=== PATIENT | male | born 1975 | race American Indian/Alaskan Native ===

== ENCOUNTER 2018-02-01 15:16 | Inpatient (IN) | payer BC ==
[2018-02-01 15:42] VITALS: BMI 28.6
[2018-02-01] MEDS: Sodium Chloride 0.9% 1,000 ML IV SCH ×2 (15:45→20:06)
--- NOTE | 2018-02-01 15:45 | ED PDOC ---
Arrival/HPI - General Chief Complaint: Male Genitourinary Time Seen by Provider: 02/01/18 15:19 Historian: Patient - History of Present Illness Narrative History of Present Illness (Text): 02/01/18 15:41 42 y/o male, pmh including htn/prostactomy (11/2016), nkda, c/o lt. testicular pain and swelling started yesterday. Pt. stated that he has erectile dysfunction since 11/2016 surgery, not been having any sexual intercourse for the past 1 year, no urinary symptoms, stated that he noted to have left testicular pain lastn night, feeling warmth this morning, eating and drinking well, no nausea or vomiting, no chills, no abdominal or pelvic pain, no palpitation, no rash, no other medical or psychological complaints. Past Medical History - Provider Review Nursing Documentation Reviewed: Yes - Infectious Disease Hx of Infectious Diseases: None - Cardiac Hx Hypertension: Yes - Pulmonary Hx Asthma: Yes - Hematological/Oncological Hx Cancer: Yes (prostate) - Genitourinary/Gynecological Other/Comment: epididymitis - Psychiatric Hx Substance Use: No - Surgical History Other/Comment: lymph nodes. prostate - Anesthesia Hx Anesthesia: Yes Hx Anesthesia Reactions: No Hx Malignant Hyperthermia: No Family/Social History - Physician Review Nursing Documentation Reviewed: Yes Family/Social History: Unknown Family HX Smoking Status: Never Smoked Hx Alcohol Use: Yes Frequency of alcohol use: Socially Hx Substance Use: No Allergies/Home Meds Allergies/Adverse Reactions: Allergies coconut Adverse Reaction (Verified 02/01/18 15:21) ANAPHYLAXIS Home Medications: Home Meds Medication Instructions Recorded Confirmed Valsartan [Valsartan] 1 tab PO DAILY 02/01/18 02/01/18 amLODIPine [Norvasc] 1 tab PO DAILY 02/01/18 02/01/18 Review of Systems - Review of Systems Constitutional: Fevers. absent: Fatigue Eyes: absent: Vision Changes ENT: absent: Hearing Changes Respiratory: absent: SOB, Cough Cardiovascular: absent: Chest Pain Gastrointestinal: absent: Abdominal Pain, Diarrhea, Nausea, Vomiting Genitourinary Male: Other (+testicular pain). absent: Dysuria, Frequency Musculoskeletal: absent: Arthralgias, Back Pain Skin: absent: Rash, Pruritis Neurological: absent: Headache, Dizziness Psychiatric: absent: Anxiety, Depression Physical Exam Vital Signs Reviewed: Yes Vital Signs Temp Pulse Resp BP Pulse Ox 02/01/18 17:33 103 H 18 99 02/01/18 17:13 98 H 18 121/71 99 02/01/18 15:26 99.8 F H 110 H 18 125/74 99 Temperature: Febrile Blood Pressure: Normal Pulse: Tachycardic Respiratory Rate: Normal Appearance: Positive for: Well-Appearing, Non-Toxic, Comfortable Pain Distress: None Mental Status: Positive for: Alert and Oriented X 3 - Systems Exam Head: Present: Atraumatic, Normocephalic Pupils: Present: PERRL Extroacular Muscles: Present: EOMI Conjunctiva: Present: Normal Mouth: Present: Moist Mucous Membranes Neck: Present: Normal Range of Motion Respiratory/Chest: Present: Clear to Auscultation, Good Air Exchange. No: Respiratory Distress, Accessory Muscle Use Cardiovascular: Present: Regular Rate and Rhythm, Normal S1, S2. No: Murmurs Abdomen: Present: Normal Bowel Sounds. No: Tenderness, Distention, Peritoneal Signs Genitourinary Male: Present: Normal External Genitalia, Circumcised Penis, Testicle Tenderness (left), Testicle Swelling (left), Other (there is no necrotic skin and no cielo skin/abscess). No: Lesions, Penile Discharge, Penile Swelling, Masses, Erythema, Hernias Back: Present: Normal Inspection Upper Extremity: Present: Normal Inspection. No: Cyanosis, Edema Lower Extremity: Present: Normal Inspection. No: Edema Neurological: Present: GCS=15, CN II-XII Intact, Speech Normal Skin: Present: Warm, Dry, Normal Color. No: Rashes Psychiatric: Present: Alert, Oriented x 3, Normal Insight, Normal Concentration Medical Decision Making ED Course and Treatment: 02/01/18 15:46 -labs/ua/chlamydia and gonorrhea -Testicular sonogram -IVF/tylenol -Observe and reassess 02/01/18 17:42 -Scrotum sonogram: Left epididymitis and orchitis. Complex, septated left hydrocele measures 1.9 x 4.8 cm. Unilateral, left varicocele. -Labs are non-significant except wbc 18 -UA show +UTI -Rocephine 250mg IM and azithromycin 1gm po ordered, Levaquin 500mg po ordered. -Pt. will need admission. 02/01/18 17:49 -I spoke to Dr. J Carlos Wray as he covers Dr. Cher Wray, discussed about the case/ labs/radiology study, request Dr. Wyatt and Dr. Degroot on the routine consult , agreed to admit to his service. -I discussed with Dr. Campbell about the case/labs/radiology study, he agreed on the treatment/admission/agreed he will put in the admission. - Lab Interpretations Lab Results: 02/01/18 16:05 02/01/18 16:05 Lab Results 02/01/18 16:05: WBC 18.0 H, RBC 4.30, Hgb 13.1 L, Hct 35.6 L, MCV 82.8, MCH 30.5 , MCHC 36.8, RDW 12.5, Plt Count 170, MPV 8.4, Gran % 93.0 H, Lymph % (Auto) 3.1 L, [place] % (Auto) 3.8, Eos % (Auto) 0.0 L, Baso % (Auto) 0.1, Gran # 16.77 H , Lymph # (Auto) 0.6 L, [place] # (Auto) 0.7 H, Eos # (Auto) 0.0, Baso # (Auto) 0.01, Neutrophils % (Manual) 89 H, Lymphocytes % (Manual) 3 L, Atypical Lymphs % 1 H, Monocytes % (Manual) 7 H 02/01/18 16:05: Sodium 139, Potassium 4.0, Chloride 100, Carbon Dioxide 25, Anion Gap 17, BUN 16, Creatinine 1.1, Est GFR ( Amer) > 60, Est GFR (Non- Af Amer) > 60, Random Glucose 170 H, Calcium 10.1, Magnesium 1.9, Total Bilirubin 1.6 H, AST 18, ALT 25, Alkaline Phosphatase 75, Total Protein 7.6, Albumin 4.4, Globulin 3.1, Albumin/Globulin Ratio 1.4 02/01/18 16:05: Urine Color Yellow, Urine Appearance Sl cloudy, Urine pH 6.0, Ur Specific [place] 1.025, Urine Protein Trace H, Urine Glucose (UA) 250 H, Urine Ketones Negative, Urine Blood Small H, Urine Nitrate Negative, Urine Bilirubin Negative, Urine Urobilinogen 0.2, Ur Leukocyte Esterase Small H, Urine RBC 1 - 3, Urine WBC 5 - 10, Ur Epithelial Cells 0 - 2, Urine Bacteria Few - RAD Interpretation Radiology Orders: 02/01/18 15:41 TESTES DUPLEX COMPLETE [US] Stat HISTORY: Left testicular pain started last night TECHNIQUE: Realtime sonography through the scrotum with color and doppler flow. COMPARISON: None Available. FINDINGS: RIGHT TESTICLE: Measures 2 x 4 cm. Normal echotexture and flow. RIGHT EPIDIDYMIS: Epididymal head measures 0.9 x 0.7 cm. Grossly unremarkable appearance with normal flow. LEFT TESTICLE: Measures 2.4 x 2.7 x 4.3 cm. Variable echogenicity, increase flow compared to right testicle. LEFT EPIDIDYMIS: Epididymal head measures 1.3 x 1.5 cm. Edematous left epididymis, increased flow. HYDROCELE: Septated, complex left hydrocele. Trace right hydrocele VARICOCELE: Left varicocele OTHER FINDINGS: None. IMPRESSION: Left epididymitis and orchitis. Complex, septated left hydrocele measures 1.9 x 4.8 cm. Unilateral, left varicocele. Veterinary Laboratory Diagnostician: Radiologist - Medication Orders Current Medication Orders: Sodium Chloride (Sodium Chloride 0.9%) 1,000 mls @ 250 mls/hr IV .Q4H SHANNAN Last Admin: 02/01/18 15:45 Dose: 250 mls/hr eMAR Start Stop Document 02/01/18 15:45 SF (Rec: 02/01/18 17:24 SF [email or web address] Intravenous Solution Start Date 02/01/18 Start Time 15:45 End Date 02/01/18 Discontinued Medications Acetaminophen (Tylenol 325mg Tab) 650 mg PO STAT STA Stop: 02/01/18 15:41 Last Admin: 02/01/18 16:00 Dose: 650 mg Azithromycin (Zithromax) 1,000 mg PO STAT STA PRN Reason: Protocol Stop: 02/01/18 16:32 Last Admin: 02/01/18 17:22 Dose: 1,000 mg Ceftriaxone Sodium (Rocephin) 250 mg IM STAT STA PRN Reason: Protocol Stop: 02/01/18 16:32 Last Admin: 02/01/18 17:21 Dose: 250 mg IM Administration Charges Document 02/01/18 17:21 SF (Rec: 02/01/18 17:21 SF [id number] Injection Site MAR Injection Site Right Gluteus Alejandro Charges for Administration # of IM Administrations 1 - PA / SALES AND SERVICE ADVISOR / Resident Statement / has reviewed & agrees with the documentation as recorded. Disposition/Present on Arrival - Present on Arrival Any Indicators Present on Arrival: No History of DVT/PE: No History of Uncontrolled Diabetes: No Urinary Catheter: No History of Decub. Ulcer: No History Surgical Site Infection Following: None - Disposition Have Diagnosis and Disposition been Completed?: Yes Diagnosis: Epididymo-orchitis, acute, Leukocytosis (leucocytosis), UTI (urinary tract infection) Disposition: HOSPITALIZED Disposition Time: 15:47 Patient Plan: Admission, Observation Patient Problems: Current Active Problems Problem Status Onset Epididymo-orchitis, acute Acute Leukocytosis (leucocytosis) Acute UTI (urinary tract infection) Acute Condition: STABLE Referrals: Andrews Wray DO [Primary Care Provider] - Follow up with primary Forms: [place] (Pashto)
[2018-02-01 16:13] LABS: BASO # 0.01 K/mm3 (0.0-2.0); BASO % 0.1 % (0.0-3.0); GRAN # 16.77 (1.4-6.5); HEMOGLOBIN 13.1 g/dL (14.0-18.0); LYMPH # 0.6 (1.2-3.4); LYMPH % 3.1 % (22.0-35.0); MEAN CELL VOLUME 82.8 fl (80.0-105.0); MEAN CORPUSCULAR HEMOGLOBIN 30.5 pg (25.0-35.0); MEAN CORPUSCULAR HGB CONC 36.8 g/dl (31.0-37.0); MEAN PLATELET VOLUME 8.4 fl (7.0-11.0); MONO # 0.7 (0.1-0.6); MONO % 3.8 % (1.0-6.0); PLATELET COUNT 170 10^3/uL (120.0-450.0); RED CELL DISTRIBUTION WIDTH 12.5 % (11.5-14.5); URINE BILIRUBIN NEGATIVE (NEGATIVE); URINE BLOOD SMALL (NEGATIVE); URINE GLUCOSE (UA) 250 mg/dL (NEGATIVE); URINE LEUKOCYTE ESTERASE SMALL Leu/uL (NEGATIVE); URINE PROTEIN TRACE mg/dL (<30 mg/dL); URINE UROBILINOGEN 0.2 E.U./dL (<1 E.U./dL)
[2018-02-01 16:16] LABS: URINE COLOR YELLOW (YELLOW)
[2018-02-01 16:17] LABS: URINE APPEARANCE SL CLOUDY (CLEAR)
[2018-02-01 16:20] LABS: URINE BACTERIA FEW (NEG); URINE EPITHELIAL CELLS 0 - 2 /hpf (0-5)
[2018-02-01 16:28] LABS: ALB/GLOB RATIO 1.4 (1.1-1.8); ALBUMIN 4.4 g/dL (3.0-4.8); ALT/SGPT 25 U/L (7-56); AST/SGOT 18 U/L (17-59); BLOOD UREA NITROGEN 16 mg/dL (7-21); CALCIUM 10.1 mg/dL (8.4-10.5); GFR AFRICAN-AMERICAN > 60; GFR NON-AFRICAN AMERICAN > 60
[2018-02-01] MEDS ORDERED: cefTRIAXone (Rocephin) 250 mg Inj IM STA (16:31)
[2018-02-01 16:45] LABS: ATYPICAL LYMPHOCYTE 1 % (0.0-0.0); LYMPHOCYTE 3 % (22.0-35.0); NEUTROPHIL 89 % (50.0-70.0)
[2018-02-01 16:46] LABS: MONOCYTE 7 % (1.0-6.0)
--- NOTE | 2018-02-01 17:03 | US ---
HISTORY: Left testicular pain started last night TECHNIQUE: Realtime sonography through the scrotum with color and doppler flow. COMPARISON: None Available. FINDINGS: RIGHT TESTICLE: Measures 2 x 4 cm. Normal echotexture and flow. RIGHT EPIDIDYMIS: Epididymal head measures 0.9 x 0.7 cm. Grossly unremarkable appearance with normal flow. LEFT TESTICLE: Measures 2.4 x 2.7 x 4.3 cm. Variable echogenicity, increase flow compared to right testicle. LEFT EPIDIDYMIS: Epididymal head measures 1.3 x 1.5 cm. Edematous left epididymis, increased flow. HYDROCELE: Septated, complex left hydrocele. Trace right hydrocele VARICOCELE: Left varicocele OTHER FINDINGS: None. IMPRESSION: Left epididymitis and orchitis. Complex, septated left hydrocele measures 1.9 x 4.8 cm. Unilateral, left varicocele.
[2018-02-01] MEDS ORDERED: levoFLOXacin 500 mg in D5W 500 MG/100 ML BAG IVPB STA (17:39)
--- NOTE | 2018-02-01 23:57 | CP.PCM.PN ---
Subjective - Date & Time of Evaluation Date of Evaluation: 02/01/18 Time of Evaluation: 23:55 - Subjective Subjective: Patient was seen at bedside. He complained of pain in left testicle area. 42 year old male is here with epidymitis. PMH of HTN, asthma, prostate cancer, epididymitis. Objective - Vital Signs/Intake and Output Vital Signs (last 24 hours): Temp Pulse Resp BP Pulse Ox 98.7 F 100 H 17 147/89 100 02/01/18 20:05 02/01/18 20:05 02/01/18 20:05 02/01/18 20:05 02/01/18 20:05 - Medications Medications: Current Medications Acetaminophen (Tylenol 325mg Tab) 650 mg PO STAT STA Stop: 02/01/18 23:55 Doxycycline Hyclate (Doryx) 100 mg PO Q12 SHANNAN PRN Reason: Protocol Last Admin: 02/01/18 23:47 Dose: 100 mg Sodium Chloride (Sodium Chloride 0.9%) 1,000 mls @ 250 mls/hr IV .Q4H SHANNAN Last Admin: 02/01/18 20:06 Dose: 250 mls/hr Ceftriaxone Sodium (Rocephin 1 Gram Ivpb) 1 gm in 100 mls @ 100 mls/hr IVPB DAILY SHANNAN PRN Reason: Protocol Stop: 02/09/18 10:01 - Constitutional Appears: Well, No Acute Distress - Head Exam Head Exam: ATRAUMATIC, NORMAL INSPECTION, NORMOCEPHALIC - Eye Exam Eye Exam: Normal appearance - ENT Exam ENT Exam: Normal External Ear Exam - Neck Exam Neck Exam: Normal Inspection - Respiratory Exam Respiratory Exam: NORMAL BREATHING PATTERN - Cardiovascular Exam Cardiovascular Exam: absent: JVD - GI/Abdominal Exam GI & Abdominal Exam: absent: Distended - Rectal Exam Rectal Exam: Deferred - Exam Additional comments: Left testicular swelling + - Extremities Exam Extremities Exam: Normal Inspection - Back Exam Back Exam: NORMAL INSPECTION - Neurological Exam Neurological Exam: Alert, Awake, Oriented x3 - Psychiatric Exam Psychiatric exam: Normal Affect, Normal Mood - Skin Skin Exam: Normal Color Assessment and Plan - Assessment and Plan (Free Text) Assessment: Left testicular pain. Epidymitis. Prostate ca Hx Prostaectomy Hx. Hx asthma. Hx HTN. Plan: Tylenol 650 mg PO x 1. Continue management as per PMD.
[2018-02-02] MEDS: Sodium Chloride 0.9% 1,000 ML IV SCH ×5 (00:40→20:30)
[2018-02-02] MEDS ORDERED: cefTRIAXone 1 gm 1 GM/100 ML BAG IVPB SCH (10:00)
[2018-02-02 10:32] LABS: HEMOGLOBIN 12.4 g/dL (14.0-18.0); MEAN CELL VOLUME 83.9 fl (80.0-105.0); MEAN CORPUSCULAR HEMOGLOBIN 30.2 pg (25.0-35.0); MEAN PLATELET VOLUME 8.9 fl (7.0-11.0); RBC 4.1 10^6/uL (3.5-6.1); RED CELL DISTRIBUTION WIDTH 12.6 % (11.5-14.5)
[2018-02-02 10:53] LABS: ALB/GLOB RATIO 1.3 (1.1-1.8); ALBUMIN 3.6 g/dL (3.0-4.8); ALT/SGPT 32 U/L (7-56); AST/SGOT 15 U/L (17-59); BLOOD UREA NITROGEN 12 mg/dL (7-21); CALCIUM 9.2 mg/dL (8.4-10.5); GFR AFRICAN-AMERICAN > 60; GFR NON-AFRICAN AMERICAN > 60
--- NOTE | 2018-02-02 21:58 | HP ---
HISTORY OF PRESENT ILLNESS: I saw him lying in bed. He is fairly comfortable. He came in with a lot of testicular pain and swelling the other day. It has been going on for about 2 days now. He is a 42-year-old -[place] man, who is having erectile dysfunction since 2017, surgery. He is having lots of testicular pain and swelling, left is much worse than the right. It is warm. He is not feeling well. Comes to the emergency room. PAST MEDICAL HISTORY: Hypertension, asthma, prostate cancer, epididymitis, lymph nodes, prostate with the surgeries. FAMILY HISTORY: Unknown family history. SOCIAL HISTORY: Never smoked. Occasional alcohol socially. No substance abuse. ALLERGIES: COCONUT. MEDICATIONS: He takes and Norvasc. REVIEW OF SYSTEMS: He has some fevers. No acute vision or hearing changes. No shortness of breath or cough. No chest pain or palpitations. There is testicular pain on the left side. No abdominal pain, nausea, vomiting, constipation, diarrhea. He is urinating okay. No back pain. No rashes or ulcers that he knows of. No headaches or dizziness. No anxiety or depression. PHYSICAL EXAMINATION: VITAL SIGNS: He has a 99.8 temp, it has been over a 100 and 101 at home; 110 pulse; 18 respiratory rate; 125/74 blood pressure; 99% O2 sat on room air. GENERAL: He is lying in bed. He has a little bit of discomfort. Talking well. Alert and oriented x3. HEENT: His head is atraumatic, normocephalic. Extraocular muscles are intact. Pupils equal and reactive to light and accommodation. THROAT: Moist. NECK: Supple. HEART: Regular rate. Normal S1 and S2. LUNGS: Clear to auscultation bilaterally. No wheezes. No rhonchi. ABDOMEN: Soft, nontender. Positive bowel sounds. No guarding. No rebound. No CVA tenderness. EXTREMITIES: Have no edema. GENITOURINARY: He has a left testicular swelling. NEUROLOGIC: He has a GCS of 15. Cranial nerves II through XII grossly intact. Normal Speech. SKIN: Warm and dry, intact. Mild redness to the left testicle. LYMPHATICS: Thyroid midline. No palpable appreciable lymphadenopathy. LABORATORY DATA: He had multiple tests, and he had an ultrasound of the left testicle, which shows left epididymitis and orchitis. He has left hydrocele. He had blood tests. He has an 18,000 white count, 13.1 hemoglobin, 35.6 hematocrit, with a 170 platelets. He has a 139 sodium, potassium is 4, BUN 16, creatinine 1.1, GFR is greater than 60, sugar is 170, calcium is 10.1, magnesium 1.9, total bili is 1.6. AST is 18, ALT is 25, alk phos 75. Total protein 7.6, albumin is 4.4. His urine has small leukocytes. IMPRESSION: I saw him this morning and he is put on observation. I am not sure why they put on observation of an 18,000 white count with acutely found left epididymitis and orchitis. He will definitely need more than 2 overnights, I will change him to an inpatient. We will continue with aggressive treatment and care. He is on doxycycline, Rocephin, IV fluids. We will watch his blood pressure. Currently, his blood pressure is 127/74. I will hold the 2 medications that he is on at home, which are and amlodipine. I will add them if the blood pressure goes up. I will continue with aggressive treatment and care. I got a consult with Urology and Infectious Disease. <Bogoie Wray DO> [facility]
[2018-02-02] MEDS: Meropenem IV 1 gm in NS 50 ML IVPB SCH (22:32)
[2018-02-03] MEDS: Sodium Chloride 0.9% 1,000 ML IV SCH ×5 (02:00→16:18)
[2018-02-03] MEDS: Meropenem IV 1 gm in NS 50 ML IVPB SCH ×3 (05:26→21:10)
[2018-02-03] MEDS ORDERED: Barium Sulfate Susp 2.1% w/v, 2.0% w/w 450 mL Bottle PO ONE (07:37)
[2018-02-03 08:10] LABS: HEMOGLOBIN 11.5 g/dL (14.0-18.0); MEAN CELL VOLUME 83.1 fl (80.0-105.0); MEAN CORPUSCULAR HEMOGLOBIN 29.9 pg (25.0-35.0); MEAN CORPUSCULAR HGB CONC 35.9 g/dl (31.0-37.0); MEAN PLATELET VOLUME 8.6 fl (7.0-11.0); RBC 3.85 10^6/uL (3.5-6.1); RED CELL DISTRIBUTION WIDTH 12.4 % (11.5-14.5); WHITE BLOOD COUNT 9.1 10^3/ul (4.5-11.0)
[2018-02-03 08:34] LABS: ALB/GLOB RATIO 1.1 (1.1-1.8); ALBUMIN 3.4 g/dL (3.0-4.8); ALT/SGPT 28 U/L (7-56); AST/SGOT 27 U/L (17-59); BLOOD UREA NITROGEN 10 mg/dL (7-21); CALCIUM 9.2 mg/dL (8.4-10.5); GFR AFRICAN-AMERICAN > 60; GFR NON-AFRICAN AMERICAN > 60
[2018-02-03] MEDS ORDERED: Potassium Chloride 20 mEq ER Tab PO ONE (13:27)
--- NOTE | 2018-02-03 13:45 | PN ---
DATE: 02/03/2018 SUBJECTIVE: The patient seen earlier today in room 570. He did have a fever yesterday. He states that he still has pain in his scrotum. PHYSICAL EXAMINATION: VITAL SIGNS: Temperature is 99.2, T-max is 101, blood pressure is 136/80, respiratory rate of 18, heart rate of 101. HEENT: Unremarkable. NECK: Supple. LUNGS: Decreased breath sounds. HEART: Normal S1, S2. ABDOMEN: Soft, nontender. LABORATORY EXAMINATION: Reveals white count is down to 9.1, hemoglobin of 11, and platelets of 157. BUN of 10, creatinine of 1. Urinalysis is noted and serology reveals RPR is negative. Microbiology reveals the blood cultures are no growth. Testicular ultrasound is reviewed with a left epididymitis and orchitis. ASSESSMENT AND PLAN: A 42-year-old male with past medical history significant for hypertension, asthma, prostate cancer with surgery and prostatectomy in 11/2016, with erectile dysfunction, now presenting with sepsis with left epididymitis and orchitis, currently on meropenem. We are awaiting for the urine culture. The blood culture shows no growth so far and remainder to work up. The patient is also on doxycycline in addition to the meropenem. We are awaiting for a CAT scan of the abdomen and pelvis and Urology consultation, and we will follow closely with you. Case discussed with Dr. Wray. Jorge Luis Degroot MD
--- NOTE | 2018-02-03 14:13 | CT ---
PROCEDURE: CT Abdomen and Pelvis with contrast HISTORY: fever , left testicular pain COMPARISON: 11/18/2013 TECHNIQUE: Oral contrast only. Radiation dose: Total exam DLP = 511.98 mGy-cm. This CT exam was performed using one or more of the following dose reduction techniques: Automated exposure control, adjustment of the mA and/or kV according to patient size, and/or use of iterative reconstruction technique. FINDINGS: LOWER THORAX: Unremarkable. LIVER: Unremarkable. No gross lesion or ductal dilatation. GALLBLADDER AND BILE DUCTS: Cholelithiasis without CT evidence of acute cholecystitis. PANCREAS: Unremarkable. No gross lesion or ductal dilatation. SPLEEN: Splenomegaly ADRENALS: Unremarkable. No mass. KIDNEYS AND URETERS: Unremarkable. No hydronephrosis. No solid mass. VASCULATURE: Unremarkable. No aortic aneurysm. BOWEL: Unremarkable. No obstruction. No gross mural thickening. APPENDIX: Normal appendix. PERITONEUM: Unremarkable. No free fluid. No free air. LYMPH NODES: Unremarkable. No enlarged lymph nodes. BLADDER: Unremarkable. REPRODUCTIVE: Unremarkable. BONES: No acute fracture. OTHER FINDINGS: None. IMPRESSION: No acute findings related to/accounting for the clinical presentation. Additional benign and/or incidental findings described above. No significant interval change compared to the prior examination(s).
--- NOTE | 2018-02-03 18:17 | PN ---
DATE: SUBJECTIVE: I saw him resting comfortably in bed with family present. He is feeling a little bit better. He has been seen by Infectious Disease. Waiting for Urology to see him. I will re-consult them. He is eating little bit. PHYSICAL EXAMINATION: VITAL SIGNS: He has 100.6 temperature, still high; 100 pulse; 129/79 blood pressure; 20 respiratory rate; 97% O2 sat on room air. HEENT: Head is atraumatic and normocephalic. Throat is moist. NECK: Supple. HEART: Regular rate. LUNGS: Decreased breath sounds, but clear. ABDOMEN: Soft and nontender. Positive bowel sounds. No guarding. No rebound. GENITALIA: Testicles are still swollen painful. EXTREMITIES: No edema. MEDICATIONS: He is currently on Colace, Doryx, Merrem IV, IV fluids, Tylenol. I will decrease the IV fluid rate. LABORATORY DATA: He has 9.1 white count, best it has been; 11.5 hemoglobin; 32 hematocrit with 157 platelets. He has 141 sodium; potassium 3.5, I will give him some potassium. BUN 10, creatinine 1. GFR is greater than 60. Sugar is 127. Calcium is 9.2. Total bili is 1.2, AST is 27, ALT is 28, alkaline phosphatase is 96. Urine has few negative RPR. So far, I have no consults at seeing the patient, which is interesting. I will re-consult Urology. The note from Infectious Disease has not made into the chart yet and I will decrease the IV fluid rate from 250 down to 80. We will check his labs tomorrow. Continue aggressive treatment and care on Atilio Garrison. Boogie Wray DO [facility]
[2018-02-03] MEDS ORDERED: Vancomycin 2 GM in Sodium Chloride 0.9% 500 ML IVPB ONE (20:07)
[2018-02-03 21:22] LABS: PH,URINE 6.5 (4.7-8.0); URINE BILIRUBIN NEGATIVE (NEGATIVE); URINE BLOOD TRACE-INTACT (NEGATIVE); URINE GLUCOSE (UA) NEGATIVE (NEGATIVE); URINE LEUKOCYTE ESTERASE TRACE Leu/uL (NEGATIVE); URINE PROTEIN NEGATIVE mg/dL (<30 mg/dL); URINE UROBILINOGEN 0.2 E.U./dL (<1 E.U./dL)
[2018-02-03 21:23] LABS: URINE APPEARANCE CLEAR (CLEAR); URINE COLOR COLORLESS (YELLOW)
[2018-02-04 05:02] VITALS: RESP 20
[2018-02-04] MEDS: Meropenem IV 1 gm in NS 50 ML IVPB SCH ×3 (05:31→21:14)
[2018-02-04 07:30] LABS: HEMOGLOBIN 11.8 g/dL (14.0-18.0); MEAN CELL VOLUME 81.4 fl (80.0-105.0); MEAN CORPUSCULAR HEMOGLOBIN 29.7 pg (25.0-35.0); MEAN CORPUSCULAR HGB CONC 36.5 g/dl (31.0-37.0); MEAN PLATELET VOLUME 8.2 fl (7.0-11.0); RBC 3.97 10^6/uL (3.5-6.1); RED CELL DISTRIBUTION WIDTH 12.1 % (11.5-14.5); WHITE BLOOD COUNT 5.4 10^3/ul (4.5-11.0)
[2018-02-04 07:46] LABS: ALB/GLOB RATIO 1.1 (1.1-1.8); ALBUMIN 3.4 g/dL (3.0-4.8); ALT/SGPT 43 U/L (7-56); AST/SGOT 27 U/L (17-59); BLOOD UREA NITROGEN 11 mg/dL (7-21); CALCIUM 8.9 mg/dL (8.4-10.5); GFR AFRICAN-AMERICAN > 60; GFR NON-AFRICAN AMERICAN > 60
[2018-02-04] MEDS: Sodium Chloride 0.9% 1,000 ML IV SCH (09:21)
--- NOTE | 2018-02-04 09:52 | CON ---
DATE: 02/02/2018 LOCATION: The patient is in room 570, bed 1. CHIEF COMPLAINT: Left testicular pain times several days. HISTORY OF PRESENT ILLNESS: This is a 42-year-old man, who is known to have prostate cancer, asthma, hypertension. He had a prostate surgery approximately 8 years ago and now he has not sexually active since, he is , he has living children, and now, he is admitted with left testicular pain. He has had erectile dysfunction since the surgery of 11/2016 and has had low-grade fevers. No abdominal pain, nausea or vomiting. No rash. No chest pain, headache or blurred vision. PAST MEDICAL HISTORY: Significant for hypertension, asthma, prostate cancer. PAST SURGICAL HISTORY: Significant for prostate surgery in 11/2016. He also now suffers from erectile dysfunction. ALLERGIES: HE IS ALLERGIC TO COCONUT, HE GETS ANAPHYLAXIS. MEDICATIONS AT HOME: Include amlodipine and valsartan. PHYSICAL EXAMINATION GENERAL: On examination, he is in bed, answering questions appropriately. VITAL SIGNS: Temperature of 100.3, heart rate of 101, respiratory rate of 18, blood pressure is 140/80. HEENT: Unremarkable. NECK: Supple. LUNGS: Decreased breath sounds. HEART: Normal S1 and S2. ABDOMEN: Soft, nontender. No organomegaly. No rebound, no guarding. LABORATORY DATA: Examination reveals that the patient's white count is 18,000, hemoglobin of 13, platelets of 170, 93% granulocytosis. Chemistry reveals a BUN of 16, creatinine of 1.1. Urinalysis is noted with 5 to 10 wbc's, a few bacteria. Serology nonreactive. progress note is reviewed. Emergency room note is reviewed. ASSESSMENT AND PLAN: This is a 42-year-old male with prostate cancer, had surgery in 11/2016, erectile dysfunction, , children hypertension with fevers, left testicular swelling, and leukocytosis. On examination, the testicle is swollen, tender, no inguinal lymph nodes. Sepsis with acute epididymitis, probably related to prostate and GI, and since the patient is not sexually active, we will currently start the patient on meropenem and doxycycline. We will do an HIV and RPR, which are pending, and should have a Urology consultation. We will make further recommendations for this patient pending culture results, CAT scan pending urine culture. The blood culture is thus far reported to be negative and we will make further recommendations. I will also order a prostate-specific antigen. Jorge Luis Degroot MD
--- NOTE | 2018-02-04 12:25 | PN ---
DATE: SUBJECTIVE: Atilio is having temperatures over the past 24 hours. It is as high as 102.9, and it is 100.1 and 100 this morning. I increased his anti-fever meds, added Motrin, Tylenol round the clock. I believe he has dose of vancomycin from the Infectious Disease doctor. He is comfortable in bed. He is eating, little sweats, little bit uncomfortable. PHYSICAL EXAMINATION: VITAL SIGNS: He has 100 temperature this morning, 100 pulse, 144/83 blood pressure, 20 respiratory rate, 90% O2 sat on room air. HEENT: Head is atraumatic, normocephalic. Throat is moist. NECK: Supple. HEART: Regular rate. LUNGS: Decreased breath sounds, but clear. ABDOMEN: Soft. GENITALIA: His testicles are a little bit less swollen, but still red and inflamed, that is hot. LABORATORY DATA: He has a 5.4 white count, 11.8 hemoglobin, 32.3 hematocrit with 147 platelets. . He has a 138 sodium, potassium is 3.7, BUN 11, creatinine 1, GFR is greater than 60, sugar is 146, calcium is 8.9, total bilirubin is 1, AST is 27, ALT is 43, alkaline phosphatase 74, total protein is 6.5. ASSESSMENT AND PLAN: He is being seen by Infectious Disease. I consulted Urology. He had a CAT scan of abdomen and pelvis, which showed no acute findings. for the clinical presentation. We consult Urology for today I hope because of all these temperatures, I do not think we can switch him to tablets yet. I like him to be at least fever-free for 24 hours. I will continue aggressive treatment and care for his testicular swelling, epididymidis, orchitis, cellulitis, and hypertension. Boogie Wray DO [facility]
--- NOTE | 2018-02-04 15:33 | CP.PCM.PN ---
Subjective - Date & Time of Evaluation Date of Evaluation: 02/04/18 Time of Evaluation: 09:55 - Subjective Subjective: Still with pain along the testes but it is much better, no dysuria, no penile discharge, no fevers, no nausea, no diarrhea. Objective - Vital Signs/Intake and Output Vital Signs (last 24 hours): Temp Pulse Resp BP Pulse Ox 102.7 F H 100 H 20 144/83 98 02/04/18 14:52 02/04/18 09:22 02/04/18 08:24 02/04/18 09:22 02/04/18 08:24 Intake and Output: 02/04/18 02/04/18 06:59 18:59 Intake Total 920 360 Balance 920 360 - Medications Medications: Current Medications Acetaminophen (Tylenol 325mg Tab) 650 mg PO Q4 PRN PRN Reason: Pain, moderate (4-7) Last Admin: 02/04/18 14:52 Dose: 650 mg Acetaminophen (Tylenol 325mg Tab) 650 mg PO Q4H PRN PRN Reason: Fever >100.4 F Last Admin: 02/04/18 05:31 Dose: 650 mg Amlodipine Besylate (Norvasc) 5 mg PO DAILY [facility] Last Admin: 02/04/18 09:22 Dose: 5 mg Docusate Sodium (Colace) 100 mg PO DAILY [facility] Last Admin: 02/04/18 09:23 Dose: Not Given Doxycycline Hyclate (Doryx) 100 mg PO Q12 SHANNAN PRN Reason: Protocol Last Admin: 02/04/18 09:23 Dose: 100 mg Meropenem (Merrem Iv 1 Gm Premix) 50 mls @ 100 mls/hr IVPB Q8 SHANNAN PRN Reason: Protocol Stop: 02/11/18 22:01 Last Admin: 02/04/18 13:04 Dose: 100 mls/hr Sodium Chloride (Sodium Chloride 0.9%) 1,000 mls @ 80 mls/hr IV .[id number] [facility] Last Admin: 02/04/18 09:21 Dose: 80 mls/hr Ibuprofen (Motrin Tab) 600 mg PO Q6H PRN PRN Reason: Temperature Last Admin: 02/04/18 14:51 Dose: 600 mg Valsartan (Diovan) 320 mg PO DAILY [facility] Last Admin: 02/04/18 09:23 Dose: 320 mg - Labs Labs: 02/04/18 07:15 02/04/18 07:15 - Constitutional Appears: Chronically Ill - Head Exam Head Exam: NORMAL INSPECTION - Neck Exam Neck Exam: absent: Meningismus - Respiratory Exam Respiratory Exam: Decreased Breath Sounds - Cardiovascular Exam Cardiovascular Exam: +S1, +S2 - GI/Abdominal Exam GI & Abdominal Exam: Soft. absent: Tenderness Assessment and Plan - Assessment and Plan (Free Text) Plan: Assessment Acute epidydimitis and orchitis on the left, slowly improving prostate CA S/P prostatectomy erectile dysfunction asthma Plan Continue Doxycycline and Merrem (day 3) - follow up Urology evaluation and recommendations will continue to monitor clinically
[2018-02-05] MEDS: Sodium Chloride 0.9% 1,000 ML IV SCH (01:03)
[2018-02-05] MEDS: Meropenem IV 1 gm in NS 50 ML IVPB SCH (05:42)
[2018-02-05 07:45] VITALS: BP 142/87; PULSE 95; TEMP 99.7; O2SAT 99
--- NOTE | 2018-02-05 08:34 | CON ---
DATE: 02/04/2018 GENITOURINARY CONSULTATION CHIEF COMPLAINT: Left scrotal pain. HISTORY OF PRESENT ILLNESS: This is a 42-year-old male who is known to me from prior evaluations. The patient has a history of prostate cancer. About 2 years ago, he underwent a robot assisted radical prostatectomy. The patient was doing well. He has not had any recent urologic followup and approximately [id number] days prior to admission, the patient began having left scrotal pain with some swelling. The pain progressed and became worse. The patient reports he did have some mild dysuria and increased urinary frequency at that time. Pain became severe and the patient presented to the emergency room. He was diagnosed with an epididymo-orchitis and was admitted for IV antibiotics as he had a fever and elevated white count. The patient has been improving with treatment, although still having some pain and left-sided swelling as well as intermittent fevers.. The patient denies any flank pain, any nausea or vomiting. No recent injury to his scrotum. PAST MEDICAL HISTORY: Significant for prostate cancer, hypertension, and asthma. MEDICATIONS: Currently include Colace, Diovan, Doryx, meropenem, Motrin, Norvasc, and Tylenol. ALLERGIES: ALLERGIC TO COCONUT. FAMILY HISTORY: Noncontributory to this episode. SOCIAL HISTORY: No smoking or EtOH use. REVIEW OF SYSTEMS: Positive for dysuria, urinary frequency, history of prostate cancer, and left scrotal pain. All other systems are negative. PHYSICAL EXAMINATION: GENERAL: The patient is awake, alert, in no acute distress. He is lying in his bed. He is answering questions appropriately. HEENT: Head, eyes, ears, nose, and throat are normocephalic, atraumatic. NECK: Supple. There is no adenopathy. CHEST: Reveals a normal inspiratory effort. CARDIAC: Shows positive S1, S2. No peripheral edema. ABDOMEN: Soft, nontender, nondistended. There is no hepatosplenomegaly. There is no costovertebral angle tenderness. There is no rebound or guarding. GENITOURINARY: Phallus is normal. Scrotum shows mild left-sided swelling. Testes bilaterally descended, right is not tender, no masses. Left is swollen, mildly tender in the posterior aspect. Epididymides: Right normal. Left is markedly swollen and tender, mostly in the head and mid epididymis. There is no fluctuance noted in the scrotum or epididymis. EXTREMITIES: No cyanosis or edema. LABORATORY DATA: WBC count was 18 on admission, now down to 5.4. Creatinine 1 with a GFR greater than 60, blood sugars have been somewhat high. Urinalysis showed 1 to 3 rbc's, 5 to 10 wbc's on admission, now down to 1 to 3. Nitrites were negative. Urine culture 50 to 100,000 CFU/mL with more than two organisms present. Blood cultures are negative. On radiologic exam, the patient had a scrotal ultrasound done on admission which showed left epididymal orchitis with a complex septated left hydrocele measuring 1.9 x 4.8 cm and left varicocele. The patient then had a CT scan done yesterday which showed kidneys to be unremarkable. No hydronephrosis or mass. There were no acute findings accounting for the clinical presentation. IMPRESSION AND PLAN: This is a 42-year-old male with left epididymal orchitis years after a radical robotic prostatectomy. There are no apparent areas of fluctuance. There is no overlying cellulitis, nothing to drain acutely. The patient appears to be improving on IV antibiotics, Doryx, and nonsteroidals. Plan will be to continue these medications and continue observation until he is afebrile. When the patient is afebrile for 24 hours, possibly he could be switched to solely oral antibiotics by Infectious Disease and be observed again and if remains afebrile, he can be discharged home on oral antibiotics and nonsteroidals. The patient will then need to follow up in my office for re-examination in a few days after discharge to make sure he is not developing an abscess. The patient can also follow up with Dr. Morales who performed the robotic prostatectomy whichever is easier for the patient. Thank you for allowing me to participate in the care of this patient, we will continue to follow him with you. Josias Wyatt MD
--- NOTE | 2018-02-06 05:30 | DS ---
HISTORY OF PRESENT ILLNESS: He is resting comfortably in his room. He wants to leave. PHYSICAL EXAMINATION: VITAL SIGNS: He had 103 temperature yesterday; today it is 98 and 99, feels better. He has a 99.7 temperature now, 95 pulse, 142/87 blood pressure, 20 respiratory rate, 99% sat on room air. HEAD: Atraumatic, normocephalic. HEART: Regular rate. LUNGS: Clear to auscultation. ABDOMEN: Soft, nontender. Positive bowel sounds. EXTREMITIES: No edema. GENITALIA: Testicles are still swollen, but are not as bad. MEDICATIONS: He is on Colace, Diovan, Doryx, Merrem IV, Motrin, Norvasc, IV fluids and Tylenol. LABORATORY DATA: He has a white count that dropped down to 5.4, which is the best he has been; 11.8 hemoglobin, 32.3 hematocrit, with a 147 platelets. He has a 138 sodium, potassium is 3.7, BUN 11, creatinine 1, GFR is greater than 60, sugar is 146, calcium is 8.9. Total bili is 1, AST is 27, ALT is 43, alk phos 74, total protein 6.5. ASSESSMENT AND PLAN: He is being seen by Infectious Disease and Urology. If I can discharge him today, I will try. I will discuss this with Infectious Disease today. If I could discharged today, we will follow up on the outpatient with Urology and Dr. Wray, and hopefully I can get that arranged. Depends on his temperatures and what Infectious Disease says. Boogie Wray DO
== END 2018-02-05 12:04 | disposition home or self-care (01) | DRG 728 ==
LOC: ED 15:16 → ERH 17:44 → 5RSO 20:40 → OBSVTOIN 02-02 10:31
PROVIDERS: ADMIT Family Medicine; ATTEND Family Medicine
DX: N45.3 Epididymo-orchitis (principal); N52.9 Male erectile dysfunction, unspecified; J45.909 Unspecified asthma, uncomplicated; I10 Essential (primary) hypertension; Z85.46 Personal history of malignant neoplasm of prostate; Z90.79 Acquired absence of other genital organ(s)